=== PATIENT | female | born 1945 ===

== ENCOUNTER 2017-02-22 13:05 | Inpatient (IN) ==
[2017-02-22] MEDS ORDERED: ACETAMINOPHEN 325 MG TABLET PO PRN (14:13)
[2017-02-22] MEDS ORDERED: GLUCAGON 1 MG VIAL IM PRN (14:13)
[2017-02-22] MEDS ORDERED: DEXTROSE 50% 25 GM/50 ML VIAL IV PRN (14:13)
[2017-02-22] MEDS ORDERED: ONDANSETRON 4 MG/2 ML VIAL IV PRN (14:13)
[2017-02-22] MEDS ORDERED: ZALEPLON 5 MG CAPSULE PO PRN (14:13)
--- NOTE | 2017-02-22 14:13 | Emergency Department Note ---
IYuliya Hilary, am scribing for, and in the presence of, Leonela Ceja DO 13: 47. IMarcial Debra, DO, personally performed the services described in this documentation, ascribed by Triny Dwyer in my presence, and it is both accurate and complete [id number] . Arrival - Arrival Chief Complaint: Non-Specific Stated Complaint: low sodium ED Nursing Triage Note: Pt arrrived via ems with complaint of low sodium. Pt states she went to clinic for diabetic check up-- was found to have low potassium. Pt reports chest pain x 2 wks. Denies chest pain at present. Denies any pain or discomfort. Denies n/v. Mode of Arrival: Stretcher Limitations: No Limitations Source: Patient, RN Notes Reviewed - History of Present Illness HPI Narrative: Pt is a 71 y/o female broght into the ED via EMS from [facility] with c/o low sodium. Pt states she went to [facility] to get a diabetic check up and they found that she has low potassium. She denies any pain but confirms weakness. No other complaints or problems stated in the ED. Onset (ago): hour(s) Consistency: intermittent Severity: mild Severity scale (1-10): 1 Allergies/Adverse Reactions: Allergies Allergy/AdvReac Type Severity Reaction Status Date / Time Amoxicillin Allergy Unknown/Unable Verified 01/24/16 12:35 to obtain Penicillins Allergy Unknown/Unable Verified 01/24/16 12:35 to obtain Home Medications: Home Medications Medication Instructions Recorded Confirmed Type Albuterol Sulfate [Albuterol 2 puff INH Q4H PRN 06/16/15 01/24/16 History Inhaler] Mometasone Inhaler [Asmanex HFA 220 mcg INH BEDTIME 06/16/15 01/24/16 History 200 mcg] Multivitamin [Multivitamins] 1 each PO DAILY 06/16/15 01/24/16 History Omeprazole 40 mg PO DAILY #30 capsule 06/16/15 01/24/16 Rx Simvastatin [Zocor] 20 mg PO DAILY 06/16/15 01/24/16 History Levothyroxine Tab [Synthroid Tab] 25 mcg PO DAILY@0700 #30 tablet 07/22/1501/23 Rx Sennosides [Senna] 2 tablet PO BID 10/07/15 01/24/16 History Aspirin Chew Tab 81 mg PO DAILY tablet 10/11/15 01/24/16 Rx Carvedilol [Coreg] 6.25 mg PO BID #60 tablet 10/11/15 01/24/16 Rx Clopidogrel [Plavix] 75 mg PO DAILY #30 tablet 10/11/15 01/24/16 Rx Lisinopril 2.5 mg PO DAILY #30 tablet 10/11/15 01/24/16 Rx Nitroglycerin Sl Tab [Nitrostat] 0.4 mg SL Q5M PRN #25 tablet 10/11/15 01/24/16 Rx Cetirizine HCl [Cetirizine Tab] 10 mg PO DAILY 01/24/16 01/24/16 History Clopidogrel [Plavix] 75 mg PO DAILY 01/24/16 01/24/16 History Furosemide 20 mg PO PC SUPPER 01/24/16 01/24/16 History Furosemide Tab [Lasix Tab] 20 mg PO AC BREAKFAST 01/24/16 01/24/16 History NIFEdipine [Nifedipine ER] 30 mg PO DAILY 01/24/16 01/24/16 History Ranitidine Tab [Zantac Tab] 150 mg PO BID 01/24/16 01/24/16 History Sertraline [Zoloft] 50 mg PO BEDTIME #30 tablet 01/25/16 Rx clonazePAM TAB [KlonoPIN] 0.25 mg PO BID PRN #20 tablet 01/25/16 Rx Review of System - Review of System 12 point system: reviewed and no additional remarkable complaints except as stated - Review of System Constitutional: Present: weakness. 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), Eye Problem (glasses) Endocrine: History of: Diabetes Mellitus (NIDDM), Dyslipidemia Respiratory: History of: Asthma Gastrointestinal: History of: GERD, Polyps (removed three years ago) Musculoskeletal: No history of: Amputation - Surgical History Cardiac Surgeries: Patient Denies: Cardiac Catheterization Thoracic Surgeries: Patient denies;: Organ Transplant, Lobectomy Neurologic Surgeries: Patient denies: Neurologic Surgery HEENT Surgeries: Patient denies: Tonsilectomy & Adenoidectomy Abdominal Surgeries: Surgical HX of: Abdominal Surgery, Appendectomy, Cholecystectomy Reproductive Surgeries: Surgical HX of;: Gynecologic Surgery, Hysterectomy Patient denies;: Genitourinary Surgery - Family History Family History: Reports;: Family Diabetes, Family Heart Disease, Family Hypertension - Social History Smoking Status: Never smoker Frequency of Alcohol Use: None Type of Drug Use: None Exam Vital Signs: Vital Signs Temperature 98.0 F 02/22/17 13:06 Pulse Rate 65 02/22/17 13:30 Respiratory Rate 18 02/22/17 13:30 Blood Pressure 146/71 02/22/17 13:30 O2 Sat by Pulse Oximetry 100 02/22/17 13:30 - General General appearance: alert, in no apparent distress - Head Head exam: Present: atraumatic, normocephalic - Eye Eye exam: Present: normal appearance, PERRL, EOMI - ENT ENT exam: Present: mucous membranes moist, TM's normal bilaterally. Absent: mucous membranes dry - Neck Neck exam: Present: full ROM, trachea midline. Absent: tenderness - Chest Chest inspection: Present: symmetric chest wall rise. Absent: tenderness - Respiratory Respiratory exam: Present: normal lung sounds bilaterally. Absent: respiratory distress - Cardiovascular Cardiovascular exam: Present: regular rate, normal rhythm, normal heart sounds. Absent: murmur, rubs, gallop - Abdominal Exam Abdominal exam: Present: soft, normal bowel sounds. Absent: distention, tenderness - Extremities Exam Extremities exam: Present: full ROM. Absent: tenderness - Back Exam Back exam: Present: full ROM. Absent: tenderness - Neurological Exam Neurological exam: Present: alert, oriented X3, CN II-XII intact. Absent: motor sensory deficit - Psychiatric Psychiatric exam: Present: normal affect, normal mood - Skin Skin exam: Present: warm, dry, intact, normal color. Absent: rash Course Course Narrative: pt is to be admitted to the hospitalist. stable at this time Disposition Clinical Impression: Chest pain Case discussed with: patient, patient's family Disposition: Still a Patient Condition: Stable Time of Disposition: 14:00
--- NOTE | 2017-02-22 14:19 | Hospitalist History & Physical ---
Assessment and Plan - Time spent with patient Time spent with patient: Greater than 30 minutes (1) Chest pain Status: Acute Assessment and plan: Serial cardiac enzymes. Consider cardiology consult. Current Visit: Yes (2) Hypothyroidism (acquired) Status: Acute Assessment and plan: Continue home medication. Check TSH. Current Visit: Yes (3) Hypo-osmolality and hyponatremia Status: Acute Assessment and plan: Stop the chlorthalidone. Replace sodium with normal saline IV fluids. Current Visit: Yes (4) CAD (coronary artery disease) Status: Chronic Current Visit: No (5) Type 2 diabetes mellitus Status: Chronic Assessment and plan: Start diabetic diet. Accu-Cheks q. before meals and at bedtime. Sliding scale insulin coverage. Check hemoglobin A1c Current Visit: No Qualifiers: Diabetes mellitus complication status: with kidney complications Diabetes mellitus complication detail: with chronic kidney disease Chronic kidney disease stage: stage 3 (moderate) Qualified Code(s): E11.22 - Type 2 diabetes mellitus with diabetic chronic kidney disease History of Present Illness Chief complaint: Chest pain and weakness History of present illness: Ms. Hickman is a 71 year old female transferred from [facility] to the emergency department at [facility] with a complaint of left-sided chest pain and generalized weakness and lightheadedness. The patient reports that her symptoms have been worsening over the last several days to weeks. She reports occasional chest pain located in the left side of her chest. She describes this as a pressure feeling. It is not associated with any diaphoresis or shortness of breath. She denies any paroxysmal nocturnal dyspnea or orthopnea. She has no peripheral edema. She was recently taken off of Lasix and started on chlorthalidone. She was found today to have hyponatremia with a sodium of 122. This was associated with some generalized weakness and fatigue. She is being admitted for further evaluation and workup of her hyponatremia and left-sided chest pain. She has a history of diabetes, hypertension, hyperlipidemia, hypothyroidism and coronary artery disease. Her pain is a 2 out of 10 and is pressure-like in sensation. No sick contacts or recent hospitalizations. No fever or chills. The patient's home medication list from [facility] was reviewed. She is notably on chlorthalidone which may be contributing to her hyponatremia. Other home medications were reviewed and reconciled. Home Medications Medication Instructions Recorded Confirmed Type Albuterol Sulfate [Albuterol 2 puff INH Q4H PRN 11/01/15 06/10/16 History Inhaler] Mometasone Inhaler [Asmanex HFA 220 mcg INH BEDTIME 06/16/15 01/24/16 History 200 mcg] Multivitamin [Multivitamins] 1 each PO DAILY 06/16/15 01/24/16 History Omeprazole 40 mg PO DAILY #30 capsule 06/16/15 01/24/16 Rx Simvastatin [Zocor] 20 mg PO DAILY 06/16/15 01/24/16 History Levothyroxine Tab [Synthroid Tab] 25 mcg PO DAILY@0700 #30 tablet 07/22/1501/23 Rx Sennosides [Senna] 2 tablet PO BID 10/07/15 01/24/16 History Aspirin Chew Tab 81 mg PO DAILY tablet 10/11/15 01/24/16 Rx Carvedilol [Coreg] 6.25 mg PO BID #60 tablet 10/11/15 01/24/16 Rx Clopidogrel [Plavix] 75 mg PO DAILY #30 tablet 10/11/15 01/24/16 Rx Lisinopril 2.5 mg PO DAILY #30 tablet 10/11/15 01/24/16 Rx Nitroglycerin Sl Tab [Nitrostat] 0.4 mg SL Q5M PRN #25 tablet 10/11/15 01/24/16 Rx Cetirizine HCl [Cetirizine Tab] 10 mg PO DAILY 01/24/16 01/24/16 History Clopidogrel [Plavix] 75 mg PO DAILY 01/24/16 01/24/16 History Furosemide 20 mg PO PC SUPPER 01/24/16 01/24/16 History Furosemide Tab [Lasix Tab] 20 mg PO AC BREAKFAST 01/24/16 01/24/16 History NIFEdipine [Nifedipine ER] 30 mg PO DAILY 01/24/16 01/24/16 History Ranitidine Tab [Zantac Tab] 150 mg PO BID 01/24/16 01/24/16 History Sertraline [Zoloft] 50 mg PO BEDTIME #30 tablet 01/25/16 Rx clonazePAM TAB [KlonoPIN] 0.25 mg PO BID PRN #20 tablet 01/25/16 Rx Allergies Allergy/AdvReac Type Severity Reaction Status Date / Time Amoxicillin Allergy Unknown/Unable Verified 01/24/16 12:35 to obtain Penicillins Allergy Unknown/Unable Verified 01/24/16 12:35 to obtain Medical,Surgical,& Family Hx - Medical History Cardio: History of: CHF, Hypertension, [place] HEENT: History of: 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), Eye Problem (glasses) Endocrine: History of: Diabetes Mellitus (NIDDM), Dyslipidemia Respiratory: History of: Asthma Gastrointestinal: History of: GERD, Polyps (removed three years ago) Musculoskeletal: No history of: Amputation - Surgical History Cardiac Surgeries: Patient Denies: Cardiac Catheterization Thoracic Surgeries: Patient denies;: Organ Transplant, Lobectomy Neurologic Surgeries: Patient denies: Neurologic Surgery HEENT Surgeries: Patient denies: Tonsilectomy & Adenoidectomy Abdominal Surgeries: Surgical HX of: Abdominal Surgery, Appendectomy, Cholecystectomy Reproductive Surgeries: Surgical HX of;: Gynecologic Surgery, Hysterectomy Patient denies;: Genitourinary Surgery - Family History Family History: Reports;: Family Diabetes, Family Heart Disease, Family Hypertension - Social History Smoking Status: Never smoker Frequency of Alcohol Use: None Type of Drug Use: None Marital Status: Lives With:: Spouse Functional capacity: independent ambulation 12 point system: reviewed and no additional remarkable complaints except as stated - Cardiovascular Cardiovascular: Present: chest pain with activity, lightheadedness. Absent: edema, radiating jaw, neck or arm pain, orthopnea, palpitations, PND Exam - Constitutional Vitals: Period Temp Pulse Resp BP Sys/Liang Pulse Ox Last 24 Hr 98.0 F-98.0 F 65-65 15-18 146-150/61-71 100-100 Exam: Constitutional System: No distress. No tremulousness. Head: Normocephalic, atraumatic. Ears, Nose and Throat System: No pain or tenderness. No epistaxis or discharge Eyes System: Pupils equal, round, and reactive. Extraocular muscles intact. Neck: Supple, without adenopathy, No jugular venous distention. No thyromegaly, neck mass, or prior surgery apparent. Respiratory System: Chest clear to auscultation. Cardiovascular System: Heart with regular rate and rhythm. No murmur. GI System: Abdomen soft, nontender. Normo active bowel sounds present. Musculoskeletal System: limbs with no pedal edema. Full distal pulses. Neurological System: No discernable sensory deficit. No aphasia Psychiatric System: Conversation is rational Results - Labs Lab Results: I have reviewed the past 24 hour labs
[2017-02-22] MEDS ORDERED: ENOXAPARIN 40 MG/0.4 ML SYRINGE SUBCUT SCH (14:30)
[2017-02-22] MEDS ORDERED: ENOXAPARIN 40 MG/0.4 ML SYRINGE ONE (14:44)
[2017-02-22 18:05] LABS: Troponin I Only < 0.015 NG/ML (0.00-0.045)
[2017-02-22] MEDS: SODIUM CHLORIDE 0.9% 1,000 ML IV SCH (18:30)
[2017-02-22] MEDS: INSULIN LISPRO 100 UNIT/ML SUBCUT SCH ×2 (18:31→21:34)
[2017-02-22] MEDS: ASPIRIN CHEW 81 MG TABLET PO SCH ×2 (18:31→18:38)
[2017-02-22] MEDS: CARVEDILOL 6.25 MG TABLET PO SCH (21:30)
[2017-02-22 21:43] LABS: Troponin I Only < 0.015 NG/ML (0.00-0.045)
[2017-02-23] MEDS: SODIUM CHLORIDE 0.9% 1,000 ML IV SCH ×3 (02:34→10:48)
[2017-02-23 02:43] LABS: Troponin I Only < 0.015 NG/ML (0.00-0.045)
[2017-02-23 02:49] LABS: Albumin 3.2 G/DL (3.4-5.0); Bilirubin,Total 0.4 MG/DL (0.2-1.0); Calcium 8.2 MG/DL (8.5-10.1); Magnesium 2.2 MG/DL (1.8-2.4); Osmolality,Calculated 261.8 MOS/KG (273-304); Potassium 3.8 MMOL/L (3.5-5.1); Total Protein 5.7 G/DL (6.4-8.3); VLDL CHOLESTEROL 15.6 MG/DL
[2017-02-23 02:50] LABS: Risk Ratio 1.88; Thyroid Stimulating Hormone 5.68 uIU/ml (0.358-3.74)
[2017-02-23] MEDS ORDERED: PANTOPRAZOLE 40 MG TABLET PO SCH (09:00)
[2017-02-23] MEDS: ASPIRIN CHEW 81 MG TABLET PO SCH (09:32)
[2017-02-23] MEDS: CARVEDILOL 6.25 MG TABLET PO SCH (09:32)
[2017-02-23] MEDS: INSULIN LISPRO 100 UNIT/ML SUBCUT SCH ×2 (09:33→13:00)
--- NOTE | 2017-02-23 10:35 | Discharge Summary ---
<Gabino Meredith - Last Filed: 02/23/17 10:35> Hospital Course - Hospital Course Hospital Course: This is a very pleasant 71-year-old female that presented to the ED at [facility] as a lateral transfer from the [facility] for the evaluation of left-sided chest pain, generalized weakness, and lightheadedness. Patient has a medical history significant for: Hypertension, diabetes mellitus, asthma, hyperlipidemia, myocardial infarction, congestive heart failure, and GERD. Patient has a surgical history significant for appendectomy, history, and cholecystectomy. The patient reported the onset of symptoms 2 days prior to presentation. She reported that the symptoms became more severe and frequent in recent hours. The patient reported occasional chest pain which was isolated to the left side of her chest and described the feeling as "pressure"; however reported that it was not associated with any diaphoresis or dyspnea. Pertinent positives included: Left-sided chest pain, lightheadedness, weakness; pertinent negatives include: Diaphoresis, dyspnea, proximal nocturnal dyspnea, orthopnea, peripheral edema. The patient reported that she had a recent change in her medication regimen. She reported that she had been taken Lasix for several years it was discontinued and she was started on chlorthalidone. The patient had presented to her primary care physician for a routine scheduled follow-up when the symptoms became very severe. The patient was evaluated at the [facility] and found to be severely hyponatremic with sodium noted at 122. The patient was subsequently transferred to [facility] for continuation of care. The patient was admitted to the hospitalist services and placed on the telemetry unit for overnight observation. Intravenous fluids were administered to correct the sodium deficit. Serial cardiac enzymes were obtained and analyzed to rule out myocardial involvement. The patient's condition remained stable overnight. Cardiac enzymes were essentially benign. The sodium deficit was corrected; labs were obtained this morning which reported the patient's sodium at 130. The patient reported no additional episodes of chest pain overnight. Today, we feel that the patient is indeed appropriate for discharge to follow- up with her primary care physician as previously ordered. During the clinical encounter, chlorthalidone was held. We feel that this was indeed an attributing factor to the patient's hyponatremia. We have discussed in great detail with the patient the need to discontinue this medication and the patient acknowledged the importance. The patient has been directed to follow with her primary care physician as directed. Discharge Plan - Discharge Data Disposition: Disch To Home/Self Care - Discharge Medications New Levothyroxine Tab [Synthroid Tab] 50 mcg PO DAILY@0700 #30 tablet Continue Simvastatin [Zocor] 20 mg PO BEDTIME Multivitamin [Multivitamins] 1 each PO DAILY Nitroglycerin Sl Tab [Nitrostat] 0.4 mg SL Q5M PRN #25 tablet PRN Reason: Chest Pain Clopidogrel [Plavix] 75 mg PO DAILY #30 tablet NIFEdipine [Nifedipine ER] 60 mg PO DAILY Lisinopril 20 mg PO DAILY [place]-3/Dha/Epa/Fish Oil [Fish Oil 1,000 mg Softgel] 1,000 mg PO BID Docusate/Senna 50-8.6 [Senokot S] 1 tablet PO DAILY PRN PRN Reason: Constipation Aspirin EC Tab 81 mg PO DAILY Iron,Carb/Vit C/Vit B12/Folic [Icar-C Plus Tablet] 1 tablet PO DAILY Discontinued Furosemide Tab [Lasix Tab] 10 mg PO BEDTIME Furosemide Tab [Lasix Tab] 20 mg PO QAM Chlorthalidone 25 mg PO DAILY Levothyroxine Tab [Synthroid Tab] 25 mcg PO DAILY - Follow Up or Referral - Forms/Instructions Exam - Constitutional Vitals: Period Temp Pulse Resp BP Sys/Liang Pulse Ox Last 24 Hr 97.3 F-98.8 F 54-76 14-20 102-150/51-77 97-100 Discharge Results Labs on day of discharge: Labs from last 24 hours 02/23/17 02/23/17 02/23/17 07:57 01:15 01:15 Sodium 130 L Potassium 3.8 Chloride 94 L Carbon Dioxide 26 Anion Gap 13.8 BUN 19 H Creatinine 1.10 H GFR Calculation 53 BUN/Creatinine Ratio 17.00 Glucose 90 POC Glucose 116 H Hemoglobin A1c 6.2 Calculated Osmolality 261.8 L Calcium 8.2 L Magnesium 2.2 Total Bilirubin 0.40 AST 9 ALT 16 Alkaline Phosphatase 96 Total Creatine Kinase CK-MB (CK-2) Troponin I Total Protein 5.7 L Albumin 3.2 L Globulin 2.5 Albumin/Globulin Ratio 1.2 Triglycerides 78 Cholesterol 113 LDL Cholesterol 45.0 VLDL Cholesterol 15.6 HDL Cholesterol 60 Heart Disease Risk Ratio 1.88 TSH 3rd Generation 5.680 H 02/23/17 02/22/17 02/22/17 01:15 21:36 20:36 Sodium Potassium Chloride Carbon Dioxide Anion Gap BUN Creatinine GFR Calculation BUN/Creatinine Ratio Glucose POC Glucose 89 Hemoglobin A1c Calculated Osmolality Calcium Magnesium Total Bilirubin AST ALT Alkaline Phosphatase Total Creatine Kinase 104 D 132 CK-MB (CK-2) 1.3 < 1.0 Troponin I < 0.015 < 0.015 Total Protein Albumin Globulin Albumin/Globulin Ratio Triglycerides Cholesterol LDL Cholesterol VLDL Cholesterol HDL Cholesterol Heart Disease Risk Ratio TSH 3rd Generation 02/22/17 02/22/17 16:27 15:20 Sodium Potassium Chloride Carbon Dioxide Anion Gap BUN Creatinine GFR Calculation BUN/Creatinine Ratio Glucose POC Glucose 146 H Hemoglobin A1c Calculated Osmolality Calcium Magnesium Total Bilirubin AST ALT Alkaline Phosphatase Total Creatine Kinase 135 CK-MB (CK-2) < 1.0 Troponin I < 0.015 Total Protein Albumin Globulin Albumin/Globulin Ratio Triglycerides Cholesterol LDL Cholesterol VLDL Cholesterol HDL Cholesterol Heart Disease Risk Ratio TSH 3rd Generation DS: Provider Date of admission: 02/22/17 14:13 Primary care physician: Yessi Dacosta MD Attending physician on admission: Alexey Palma MD Consults: 02/22/17 15:25 Consult to Dietitian [CONS] Routine Reason for Dietitian: Other Discharging clinician: Gabino Meredith CNP <Alexey Palma - Last Filed: 02/23/17 11:00> Hospital Course - Time spent with patient Time with patient DS: Greater than 30 minutes (Total discharge time for this patient, including [id number] time, clinical documentation, medication reconciliation, and discharge planning was 38 minutes.) Diagnosis - Discharge Diagnosis (1) Chest pain Status: Acute (2) Hypothyroidism (acquired) Status: Acute (3) Hypo-osmolality and hyponatremia Status: Acute (4) CAD (coronary artery disease) Status: Chronic Discharge Plan - Discharge Data Condition at Discharge: Stable Discharge Diet: advance to your usual diet Activity: resume usual activities as tolerated Hygiene: no restrictions Weight Bearing at Discharge: full weight bearing Driving: no restrictions Contact your physician if you experience:: fever over 101, Nausea/Vomiting, Shortness of breath - Forms/Instructions Additional Discharge Instructions: Follow-up with primary care physician and [facility]. Stop chlorthalidone. Increase Synthroid. DS: Provider Expected date of discharge: 02/23/17
[2017-02-23 12:02] VITALS: BP 144/67
== END 2017-02-23 13:26 | disposition home or self-care (01) | DRG 641 ==
LOC: EDUNIT# → N.ED 13:05 → N.EDINP 14:13 → N.TELEN 15:10
PROVIDERS: ADMIT Family Medicine; ATTEND Family Medicine